=== PATIENT | female | born 1990 | race Caucasian/White ===

== ENCOUNTER → 2018-10-11 | Outpatient (REF) ==
[~2018-10-11] MED LIST: CIPR-214 PO; METR-1 PO; NOVOLINRPT IJ; NPH,100V12 SQ
== END ==
LOC: RESP 14:40
PROVIDERS: ATTEND Nurse Practitioner
DX: Z01.810 Encounter for preprocedural cardiovascular examination (principal)

== ENCOUNTER → 2018-10-13 | Day surgery (SDC) | payer OTHER ==
[~2018-10-13] VITALS: Ht 164.5 cm; Wt 69.4 kg
[~2018-10-13] MED LIST changes: +GLYCOPYRROLATE 0.2MG/ML 1 ML INJ ONE; +LIDOCAINE/SOD BICARB 8.4% SYR ID ONE; +MIDAZOLAM 2 MG/2 ML VIAL ONE; +NORMOSOL R SOLN(*) 1000 ML BAG 1,000 ML IV PRN; +PROPOFOL EMUL(*) 10MG/ML 20 ML 60 ML ONE
[2018-10-13 06:27] VITALS: BP 117/69
[2018-10-13 08:13] VITALS: BP 109/63
[2018-10-13 08:15] VITALS: BP 112/95
[2018-10-13 08:30] VITALS: BP 111/72
--- NOTE | 2018-10-13 08:30 | Short(Outpt) Discharge Summary ---
Discharge Summary Reason for Hosp/Final Diag: (1) Blood per rectum Hospital Course & Plan: pt presented for egd and colonoscopy. she tolerated the procedure well. the extent of advancement was sigmoid. she will be discharged home when criteria met. Departure Discharge to: Home Discharge Instructions Home Meds Active Scripts Metronidazole (FLAGYL) 500 Mg Tablet, 500 MG PO Q8H for 10 Days, #21 TAB Prov:WIL BOWMAN 10/13/18 Ciprofloxacin 500 Mg Tab (CIPROFLOXACIN 500 MG TAB) 500 Mg Tablet, 500 MG PO ONCE for 10 Days, #20 TAB Prov:WIL BOWMAN 10/13/18 Reported Medications Nph, Human Insulin Isophane (NOVOLIN N) 100 Unit/1 Ml Vial, 15-20 UNIT SQ QHS, VIAL 10/10/18 Nph, Human Insulin Isophane (NOVOLIN N) 100 Unit/1 Ml Vial, 15-20 UNIT SQ QAM, VIAL 10/10/18 Insulin Regular, Human (NOVOLIN R) 100 Unit/1 Ml Vial, UNIT IJ DIRECTED, VIAL 10/10/18 Diet: Regular Activity: As Tolerated Special Instructions: we will call you in a week with biopsy results WIL BOWMAN Oct 13, 2018 08:30
[2018-10-13 08:44] VITALS: BP 116/68
== END ==
LOC: OR 01:14
PROVIDERS: ATTEND Surgery
DX: K29.50 Unspecified chronic gastritis without bleeding (principal); K29.80 Duodenitis without bleeding; K52.9 Noninfective gastroenteritis and colitis, unspecified; R10.13 Epigastric pain; R19.7 Diarrhea, unspecified; E10.9 Type 1 diabetes mellitus without complications
CPT/HCPCS: 00813; 36416; 43239; 45380; 81025; 82948; 88305; 88342; J2250; J2704; J3490